=== PATIENT | male | born 1975 | race Caucasian/White ===

== ENCOUNTER 2016-11-15 16:23 | Inpatient (IN) | payer BC, OTHER ==
[2016-11-15] MEDS ORDERED: SODIUM CHLORIDE 0.9% 1,000 ML IV STA ×2 (16:46→17:06)
--- NOTE | 2016-11-15 16:58 | ED ---
General Adult HPI - General Chief complaint: Dizziness Stated complaint: Dizzy, dehydrated Time Seen by Provider: 11/15/16 16:35 Source: patient, RN notes reviewed Mode of arrival: ambulatory Limitations: no limitations - History of Present Illness Initial comments: 41-year-old male presents emergency Department chief complaint of lightheadedness. Patient states that he is being lightheadedand he is standing when he goes to walk to the car. Patient does admit to history of hypertension. Patient states has been no shortness of breath no chest pain with this. Patient states he has actually passed out but he feels like he might pass out. Patient is concerned maybe it's dehydration he states he does not believe that he drinks enough water. Patient's eighth that he is not having any other symptoms at this time he does feel better but gets he will have the symptoms again he believes. Patient denies any other symptoms at this time. Patient denies any recent fever, chills, shortness of breath, chest pain, back pain, abdominal pain, nausea vomiting, numbness or tingling, dysuria or hematuria, constipation or diarrhea, headaches or visual changes, or any other current symptoms. - Related Data Home Medications Medication Instructions Recorded Confirmed Diazepam [Valium] 5 mg PO DAILY PRN 10/29/13 11/15/16 Hydrocodone/Acetaminophen [[place] 1 tab PO Q6H PRN 10/29/13 11/15/16 10-325] Albuterol Inhaler [Ventolin Hfa 1 - 2 puff INHALATION RT-Q6H PRN 11/15/16 Inhaler] Ergocalciferol [Vitamin D2] 50,000 unit PO FR 11/15/16 11/15/16 Febuxostat [Uloric] 40 mg PO DAILY PRN 11/15/16 11/15/16 Levothyroxine Sodium [Synthroid] 50 mcg PO DAILY 11/15/16 11/15/16 Lisinopril 30 mg PO DAILY 11/15/16 11/15/16 Mometasone/Formoterol [Dulera 200 1 puff INHALATION RT-DAILY 11/15/16 11/15/16 Mcg/5 Mcg Inhaler] oxyCODONE-APAP 10-325MG [Percocet 1 tab PO Q8H PRN 11/15/16 11/15/16 10-325 mg] Allergies Allergy/AdvReac Type Severity Reaction Status Date / Time No Known Allergies Allergy Verified 11/15/16 16:42 Review of Systems ROS Statement: Those systems with pertinent positive or pertinent negative responses have been documented in the HPI. ROS Other: All systems not noted in ROS Statement are negative. Past Medical History Past Medical History: Hypertension, Thyroid Disorder Additional Past Medical History / Comment(s): GOUT, vertigo History of Any Multi-Drug Resistant Organisms: None Reported Past Surgical History: Back Surgery, Orthopedic Surgery Past Psychological History: No Psychological Hx Reported Smoking Status: Former smoker Past Alcohol Use History: Occasional Past Drug Use History: None Reported General Exam - General Exam Comments Initial Comments: General: The patient is awake and alert, in no distress, and does not appear acutely ill. Eye: Pupils are equal, round and reactive to light, extra-ocular movements are intact; there is normal conjunctiva bilaterally. No signs of icterus. Ears, nose, mouth and throat: There are moist mucous membranes. Neck: The neck is supple, there is no tenderness. Cardiovascular: There is a regular rate and rhythm. No murmur, rub or gallop is appreciated. Respiratory: Lungs are clear to auscultation, respirations are non-labored, breath sounds are equal. No wheezes, stridor, rales, or rhonchi. Gastrointestinal: Soft, non-distended, non-tender abdomen without masses or organomegaly noted. There is no rebound or guarding present. No CVA tenderness. Bowel sounds are unremarkable. Back: There is no tenderness to palpation in the midline. There is no obvious deformity. No rashes noted. Musculoskeletal: Normal ROM, no tenderness, There is no pedal edema. There is no calf tenderness or swelling. Sensation intact. Pulses equal bilaterally 2+. Neurological: CN II-XII intact, There are no obvious motor or sensory deficits. Coordination appears grossly intact. Speech is normal. Skin: Skin is warm and dry and no rashes or lesions are noted. Psychiatric: Cooperative, appropriate mood & affect, normal judgment. Limitations: no limitations Course Vital Signs 11/15/16 11/15/16 11/15/16 16:27 17:08 17:30 Temperature 97.8 F Pulse Rate 82 67 Pulse Rate [ 84 Sitting] Pulse Rate [ 90 Standing] Pulse Rate [ 80 Supine] Respiratory 20 18 Rate Blood Pressure 117/62 89/55 Blood Pressure 93/55 [Sitting] Blood Pressure 92/51 [Standing] Blood Pressure 59/54 [Supine] O2 Sat by Pulse 99 98 Oximetry 11/15/16 11/15/16 18:00 19:19 Temperature Pulse Rate 68 64 Pulse Rate [ Sitting] Pulse Rate [ Standing] Pulse Rate [ Supine] Respiratory 20 16 Rate Blood Pressure 88/52 96/51 Blood Pressure [Sitting] Blood Pressure [Standing] Blood Pressure [Supine] O2 Sat by Pulse 97 100 Oximetry EKG Findings - EKG Comments: EKG Findings:: normal sinus rhythm 72 bpm, normal axis, no atopy, no S-T depressions or elevations, Medical Decision Making - Medical Decision Making 41-year-old male presents to the emergency department with a chief complaint of lightheadedness. Patient labwork reviewed that shows acute kidney failure. At this time patient remains hypotensive in the ER after 2 liters of fluid BP started to rise. Pateint will be continued on maintence fluids. Urine was reviewed and post void bladder scan showed 25cc. At this time we will admit patient and continue iv hydration. Patient will have labs rechecked in the am. we will consult nephro. Rito in agreement with admission and david was discussed with regarding case. - Lab Data Result diagrams: 11/15/16 17:10 11/15/16 17:10 Lab Results 11/15/16 11/15/16 11/15/16 Range/Units 17:10 17:10 17:10 WBC 13.3 H (3.8-10.6) k/uL RBC 4.69 (4.30-5.90) m/uL Hgb 13.8 (13.0-17.5) gm/dL Hct 40.9 (39.0-53.0) % MCV 87.2 (80.0-100.0) fL MCH 29.4 (25.0-35.0) pg MCHC 33.7 (31.0-37.0) g/dL RDW 13.3 (11.5-15.5) % Plt Count 282 (150-450) k/uL Neutrophils % 69 % Lymphocytes % 23 % Monocytes % 5 % Eosinophils % 1 % Basophils % 0 % Neutrophils # 9.2 H (1.3-7.7) k/uL Lymphocytes # 3.1 (1.0-4.8) k/uL Monocytes # 0.6 (0-1.0) k/uL Eosinophils # 0.1 (0-0.7) k/uL Basophils # 0.1 (0-0.2) k/uL PT (9.0-12.0) sec INR (<1.1) APTT (22.0-30.0) sec Sodium 132 L (137-145) mmol/L Potassium 4.5 (3.5-5.1) mmol/L Chloride 95 L (98-107) mmol/L Carbon Dioxide 17 L (22-30) mmol/L Anion Gap 20 mmol/L BUN 41 H (9-20) mg/dL Creatinine 4.50 H (0.66-1.25) mg/dL Est GFR (MDRD) Af Amer 18 (>60 ml/min/1.73 sqM) Est GFR (MDRD) Non-Af 15 (>60 ml/min/1.73 sqM) Glucose 89 (74-99) mg/dL Calcium 9.6 (8.4-10.2) mg/dL Magnesium 1.6 (1.6-2.3) mg/dL Total Bilirubin 0.6 (0.2-1.3) mg/dL AST 19 (17-59) U/L ALT 36 (21-72) U/L Alkaline Phosphatase 55 (38-126) U/L Total Creatine Kinase 128 (55-170) U/L CK-MB (CK-2) 0.6 (0.0-2.4) ng/mL CK-MB (CK-2) Rel Index 0.5 Troponin I <0.012 (0.000-0.034) ng/mL Total Protein 8.4 H (6.3-8.2) g/dL Albumin 5.3 H (3.5-5.0) g/dL Urine Color Urine Appearance (Clear) Urine pH (5.0-8.0) Ur Specific [place] (1.001-1.035) Urine Protein (Negative) Urine Glucose (UA) (Negative) Urine Ketones (Negative) Urine Blood (Negative) Urine Nitrite (Negative) Urine Bilirubin (Negative) Urine Urobilinogen (<2.0) mg/dL Ur Leukocyte Esterase (Negative) Urine RBC (0-5) /hpf Urine WBC (0-5) /hpf Ur Squamous Epith Cells (0-4) /hpf Amorphous Sediment (None) /hpf Hyaline Casts (0-2) /lpf Urine Mucus (None) /hpf Urine Opiates Screen (NotDetected) Ur Oxycodone Screen (NotDetected) Urine Methadone Screen (NotDetected) Ur Propoxyphene Screen (NotDetected) Ur Barbiturates Screen (NotDetected) U Tricyclic Antidepress (NotDetected) Ur Phencyclidine Scrn (NotDetected) Ur Amphetamines Screen (NotDetected) U Methamphetamines Scrn (NotDetected) U Benzodiazepines Scrn (NotDetected) Urine Cocaine Screen (NotDetected) U Marijuana (THC) Screen (NotDetected) 11/15/16 11/15/16 11/15/16 Range/Units 17:10 18:05 18:05 WBC (3.8-10.6) k/uL RBC (4.30-5.90) m/uL Hgb (13.0-17.5) gm/dL Hct (39.0-53.0) % MCV (80.0-100.0) fL MCH (25.0-35.0) pg MCHC (31.0-37.0) g/dL RDW (11.5-15.5) % Plt Count (150-450) k/uL Neutrophils % % Lymphocytes % % Monocytes % % Eosinophils % % Basophils % % Neutrophils # (1.3-7.7) k/uL Lymphocytes # (1.0-4.8) k/uL Monocytes # (0-1.0) k/uL Eosinophils # (0-0.7) k/uL Basophils # (0-0.2) k/uL PT 10.6 (9.0-12.0) sec INR 1.0 (<1.1) APTT 24.6 (22.0-30.0) sec Sodium (137-145) mmol/L Potassium (3.5-5.1) mmol/L Chloride (98-107) mmol/L Carbon Dioxide (22-30) mmol/L Anion Gap mmol/L BUN (9-20) mg/dL Creatinine (0.66-1.25) mg/dL Est GFR (MDRD) Af Amer (>60 ml/min/1.73 sqM) Est GFR (MDRD) Non-Af (>60 ml/min/1.73 sqM) Glucose (74-99) mg/dL Calcium (8.4-10.2) mg/dL Magnesium (1.6-2.3) mg/dL Total Bilirubin (0.2-1.3) mg/dL AST (17-59) U/L ALT (21-72) U/L Alkaline Phosphatase (38-126) U/L Total Creatine Kinase (55-170) U/L CK-MB (CK-2) (0.0-2.4) ng/mL CK-MB (CK-2) Rel Index Troponin I (0.000-0.034) ng/mL Total Protein (6.3-8.2) g/dL Albumin (3.5-5.0) g/dL Urine Color Yellow Urine Appearance Clear (Clear) Urine pH 5.0 (5.0-8.0) Ur Specific [place] 1.012 (1.001-1.035) Urine Protein Trace H (Negative) Urine Glucose (UA) Negative (Negative) Urine Ketones Negative (Negative) Urine Blood Negative (Negative) Urine Nitrite Negative (Negative) Urine Bilirubin Negative (Negative) Urine Urobilinogen <2.0 (<2.0) mg/dL Ur Leukocyte Esterase Small H (Negative) Urine RBC 1 (0-5) /hpf Urine WBC 14 H (0-5) /hpf Ur Squamous Epith Cells 1 (0-4) /hpf Amorphous Sediment Rare H (None) /hpf Hyaline Casts 50 H (0-2) /lpf Urine Mucus Occasional H (None) /hpf Urine Opiates Screen Detected H (NotDetected) Ur Oxycodone Screen Detected H (NotDetected) Urine Methadone Screen Not Detected (NotDetected) Ur Propoxyphene Screen Not Detected (NotDetected) Ur Barbiturates Screen Not Detected (NotDetected) U Tricyclic Antidepress Not Detected (NotDetected) Ur Phencyclidine Scrn Not Detected (NotDetected) Ur Amphetamines Screen Not Detected (NotDetected) U Methamphetamines Scrn Not Detected (NotDetected) U Benzodiazepines Scrn Detected H (NotDetected) Urine Cocaine Screen Not Detected (NotDetected) U Marijuana (THC) Screen Detected H (NotDetected) Disposition Clinical Impression: Acute kidney failure, Lightheadedness, Dehydration, Hypotension, Hyponatremia Disposition: ADMITTED IP TO THIS HOSP Referrals: July Reyna DO [Primary Care Provider] - 1-2 days Time of Disposition: 19:30 Decision Date: 11/15/16 Decision Time: 19:30
[2016-11-15 17:33] LABS: Basophils # (A) 0.1 k/uL (0-0.2); Basophils % (A) 0 %; CH 30.3; CHCM 34.8; Eosinophils # (A) 0.1 k/uL (0-0.7); Eosinophils % (A) 1 %; HCT 40.9 % (39.0-53.0); HDW 2.42; HGB 13.8 gm/dL (13.0-17.5); Luc # (Auto) 0.25; Luc % (Auto) 2; Lymphocytes # (A) 3.1 k/uL (1.0-4.8); Lymphocytes % (A) 23 %; MCH 29.4 pg (25.0-35.0); MCHC 33.7 g/dL (31.0-37.0); MCV 87.2 fL (80.0-100.0); Mean Platelet Volume 8.4; Monocytes # (A) 0.6 k/uL (0-1.0); Monocytes % (A) 5 %; Neutrophils # (A) 9.2 k/uL (1.3-7.7); Neutrophils % (A) 69 %; RBC 4.69 m/uL (4.30-5.90); RDW 13.3 % (11.5-15.5); WBC 13.3 k/uL (3.8-10.6)
--- NOTE | 2016-11-15 17:39 | XR ---
EXAMINATION TYPE: XR chest 2V DATE OF EXAM: 11/15/2016 COMPARISON: 09/23/2011 HISTORY: Dizziness TECHNIQUE: Frontal and lateral views of the chest are obtained. FINDINGS: Heart and mediastinum are normal. Lungs are clear. Diaphragm is normal. There are chest le ads. Bony thorax is intact. IMPRESSION: Normal chest. No change.
[2016-11-15 17:41] LABS: Calcium 9.6 mg/dL (8.4-10.2); Magnesium 1.6 mg/dL (1.6-2.3); Potassium 4.5 mmol/L (3.5-5.1); Total Bilirubin 0.6 mg/dL (0.2-1.3); Total Protein 8.4 g/dL (6.3-8.2)
[2016-11-15 17:54] LABS: Creatine Kinase 128 U/L (55-170)
[2016-11-15 17:57] LABS: Partial Thromboplastin Time 24.6 sec (22.0-30.0); Prothrombin Time 10.6 sec (9.0-12.0)
[2016-11-15 18:06] LABS: Creatine Kinase MB 0.6 ng/mL (0.0-2.4); Troponin I <0.012 ng/mL (0.000-0.034)
[2016-11-15 18:31] LABS: Amorphous Sediment,Urine Rare /hpf; Appearance,Urine Clear (Clear); Bilirubin,Urine Negative (Negative); Glucose,Urine (UA) Negative (Negative); Ketones,Urine Negative (Negative); Leukocyte Esterase,Urine Small (Negative); Mucus,Urine Occasional /hpf; Nitrite,Urine Negative (Negative); Particle Count 3940; Protein,Urine Trace (Negative); RBC,Urine 1 /hpf (0-5); Specific Gravity,Urine 1.012 (1.001-1.035); Squamous Epithelial Cell,Urine 1 /hpf (0-4); UA Billing (MACRO vs. MICRO) MICRO; Urobilinogen,Urine <2.0 mg/dL (<2.0); WBC,Urine 14 /hpf (0-5)
--- NOTE | 2016-11-15 19:15 | US ---
EXAMINATION TYPE: US renals and bladder DATE OF EXAM: 11/15/2016 COMPARISON: NONE CLINICAL HISTORY: Pain. Elevated BUN/creatinine EXAM MEASUREMENTS: Right Kidney: 11.2 x 5.3 x 5.4 cm Left Kidney: 11.6 x 5.3 x 4.8 cm Right Kidney: No hydronephrosis or masses seen Left Kidney: No hydronephrosis or masses seen Bladder: wnl Bilateral Jets seen: Yes There is no evidence for hydronephrosis at this point in time. No nephrolithiasis is seen. No angelina s are identified. The urinary bladder is anechoic. Bilateral ureteral jets are seen. IMPRESSION: Normal retroperitoneal sonogram exam. No evidence of renal stone or obstruction.
[2016-11-15] MEDS ORDERED: ONDANSETRON 4 MG/2 ML VIAL IVP PRN (19:30)
[2016-11-15] MEDS ORDERED: NALOXONE 0.4 MG/ML 1 ML VIAL IV PRN (19:30)
[2016-11-15] MEDS ORDERED: ACETAMINOPHEN TAB 325 MG TAB PO PRN (19:30)
[2016-11-15] MEDS ORDERED: ALLOPURINOL 100 MG TAB PO PRN (19:32)
[2016-11-15] MEDS ORDERED: ALBUTEROL NEBULIZED 2.5 MG/3 ML INHALATION PRN (19:32)
[2016-11-15 21:58] VITALS: RESP 16
[2016-11-15] MEDS: HYDROcodone/APAP 10-325MG 1 EACH TAB PO PRN (22:01)
[2016-11-15] MEDS: DIAZEPAM 5 MG TAB PO PRN (22:03)
[2016-11-16] MEDS: SODIUM CHLORIDE 0.9% 1,000 ML IV SCH ×4 (05:45→21:56)
[2016-11-16 06:16] LABS: Basophils % (A) 0 %; CH 29.9; CHCM 33.9; Eosinophils # (A) 0.1 k/uL (0-0.7); Eosinophils % (A) 2 %; HCT 35.9 % (39.0-53.0); HDW 2.44; HGB 11.8 gm/dL (13.0-17.5); Luc # (Auto) 0.19; Luc % (Auto) 3; Lymphocytes # (A) 2.6 k/uL (1.0-4.8); Lymphocytes % (A) 38 %; MCH 29.1 pg (25.0-35.0); MCHC 32.9 g/dL (31.0-37.0); MCV 88.4 fL (80.0-100.0); Mean Platelet Volume 8.1; Monocytes # (A) 0.5 k/uL (0-1.0); Monocytes % (A) 7 %; Neutrophils # (A) 3.6 k/uL (1.3-7.7); Neutrophils % (A) 51 %; RBC 4.06 m/uL (4.30-5.90); RDW 13.2 % (11.5-15.5); WBC (Perox) 7.24
[2016-11-16 06:34] LABS: Calcium 8.3 mg/dL (8.4-10.2); Potassium 4.1 mmol/L (3.5-5.1); Total Bilirubin 0.5 mg/dL (0.2-1.3); Total Protein 6.7 g/dL (6.3-8.2)
[2016-11-16] MEDS: LEVOTHYROXINE 50 MCG TAB PO SCH (06:36)
[2016-11-16] MEDS: SYMBICORT 160-4.5 MCG INHALER INHALATION SCH ×2 (08:10→20:17)
[2016-11-16] MEDS: HYDROcodone/APAP 10-325MG 1 EACH TAB PO PRN ×3 (08:19→21:23)
--- NOTE | 2016-11-16 13:19 | CONS ---
DATE OF CONSULTATION: REASON FOR CONSULTATION: Renal failure. HISTORY OF PRESENT ILLNESS: The patient is 41-year-old male who was admitted to the hospital with complaints of extreme weakness, fatigue. He felt dizzy and lightheadedness as well. When he came in to the hospital, his systolic blood pressure in the 90s and 80s range. Patient is maintained on IV fluids. His serum creatinine was 4.5 on initial admission and it is now down to 2.06. We have a previous creatinine in 2013 or 0.98 mg/dL. Patient denies any history of kidney diseases. He denies use of any nonsteroidal anti-inflammatory agents prior to admission and he was on OSEAS inhibitors prior to admission for hypertension. He states he is feeling much better and has been ambulating. PAST MEDICAL HISTORY: Hypertension, asthma, gout, hypothyroidism, vertigo. PAST SURGICAL HISTORY: Back surgery. SOCIAL HISTORY: The patient is an ex-smoker. No history of drug abuse or alcohol abuse. Medications prior to admission included [place], Valium, Synthroid, Uloric, vitamin D2, Dulera, Percocet, lisinopril. ALLERGIES: None. REVIEW OF SYSTEMS: As per HPI. Other systems negative. No fever, chills. No nausea, vomiting, or diarrhea. No chest pains. No shortness of breath. On examination, the patient is comfortable. Blood pressure is currently 115/75, heart rate 90 per minute. He is afebrile. EXAMINATION OF THE HEART: S1 and S2. EXAMINATION OF THE LUNGS: Bilateral breath sounds are heard. ABDOMEN: Soft, nontender. Examination of lower extremities shows no evidence of edema. BILLING CLINICIAN exam is grossly intact. Labs show sodium 137, potassium 4.1, BUN 38, serum creatinine 2.06. Hemoglobin 11.8 g/dL UA shows trace protein, 14 WBCs and drug screen was positive for opiates, oxycodone, benzos and marijuana. ASSESSMENT: 1. Acute kidney injury, prerenal, associated with hypotension, hypoperfusion and intravascular volume depletion currently improved. Continue with aggressive IV hydration. I have advised the patient that it is better if he stays at least one more day for IV hydration. However, he could go home if he absolutely wants to and he needs to continue to maintain aggressive oral hydration with repeat labs to be done in 1 to 2 days' time post discharge if he goes home today. 2. Hypotension secondary to intravascular volume depletion. 3. Drug screen positive for marijuana, benzodiazepines, opiates and oxycodone. 4. Hypertension, currently blood pressure is low and off on all antihypertensive medications. PLAN: Continue IV hydration. Recommend for patient to stay at least one more day. The ultrasound of the kidneys was unremarkable. He will need follow-up labs to be done as outpatient once he is discharged. Thank you for this consultation. Will continue to follow the patient with you during his hospitalization.
[2016-11-16] MEDS: DIAZEPAM 5 MG TAB PO PRN ×2 (13:26→21:24)
--- NOTE | 2016-11-16 13:27 | P.HPIM ---
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 Past Medical History Past Medical History: Asthma, Hypertension, Thyroid Disorder Additional Past Medical History / Comment(s): GOUT, vertigo History of Any Multi-Drug Resistant Organisms: None Reported Past Surgical History: Back Surgery, Orthopedic Surgery Additional Past Surgical History / Comment(s): left shoulder spurs Past Anesthesia/Blood Transfusion Reactions: No Reported Reaction Past Psychological History: No Psychological Hx Reported Smoking Status: Never smoker Past Alcohol Use History: Occasional Past Drug Use History: None Reported - Past Family History Father Additional Family Medical History / Comment(s): no history to report Mother Additional Family Medical History / Comment(s): back issues Medications and Allergies Home Medications Medication Instructions Recorded Confirmed Type Diazepam [Valium] 5 mg PO DAILY PRN 10/29/13 11/15/16 History Hydrocodone/Acetaminophen [[place] 1 tab PO Q6H PRN 10/29/13 11/15/16 History 10-325] Albuterol Inhaler [Ventolin Hfa 1 - 2 puff INHALATION RT-Q6H PRN 11/15/16 History Inhaler] Ergocalciferol [Vitamin D2] 50,000 unit PO FR 11/15/16 11/15/16 History Febuxostat [Uloric] 40 mg PO DAILY PRN 11/15/16 11/15/16 History Levothyroxine Sodium [Synthroid] 50 mcg PO DAILY 11/15/16 11/15/16 History Lisinopril 30 mg PO DAILY 11/15/16 11/15/16 History Mometasone/Formoterol [Dulera 200 1 puff INHALATION RT-DAILY 11/15/16 11/15/16 History Mcg/5 Mcg Inhaler] oxyCODONE-APAP 10-325MG [Percocet 1 tab PO Q8H PRN 11/15/16 11/15/16 History 10-325 mg] Allergies Allergy/AdvReac Type Severity Reaction Status Date / Time No Known Allergies Allergy Verified 11/15/16 16:42 Physical Exam Vitals: Vital Signs Temp Pulse Pulse Pulse Pulse Resp BP 11/16/16 11:58 90 16 11/16/16 08:00 97.6 F 70 16 11/16/16 04:00 97.8 F 61 16 11/16/16 01:06 96.5 F L 73 103 H 66 16 11/15/16 21:40 96.5 F L 73 75 66 16 11/15/16 21:10 98.2 F 76 20 126/63 11/15/16 20:01 98.9 F 57 L 16 100/59 11/15/16 19:19 64 16 96/51 11/15/16 18:30 64 20 92/54 11/15/16 18:00 68 20 88/52 11/15/16 17:30 67 18 89/55 11/15/16 17:08 84 90 80 11/15/16 16:27 97.8 F 82 20 117/62 BP BP BP Pulse Ox 11/16/16 11:58 115/75 99 11/16/16 08:00 109/70 99 11/16/16 04:00 89/45 96 11/16/16 01:06 110/66 103/63 105/63 11/15/16 21:40 110/66 103/63 105/63 99 11/15/16 21:10 100 11/15/16 20:01 97 11/15/16 19:19 100 11/15/16 18:30 100 11/15/16 18:00 97 11/15/16 17:30 98 11/15/16 17:08 93/55 92/51 59/54 11/15/16 16:27 99 Intake and Output 11/15/16 11/16/16 11/16/16 22:59 06:59 14:59 Intake Total 1440 836 Output Total 100 2950 Balance -100 -1510 836 Intake: Intake, IV Titration 1440 600 Amount Sodium Chloride 0.9% 1, 1440 600 000 ml @ 120 mls/hr IV . Q8H20M [facility] Rx#:[id number] Oral 236 Output: Urine 100 2950 Other: Voiding Method Urinal Urinal Weight 117.934 kg 113.7 kg In general patient is alert and oriented 3 in no apparent distress HEENT head normocephalic and atraumatic Neck is supple no JVD no goiter no lymphadenopathy Chest exam reveals a few scattered crackles no wheezing Cardiac exam reveals regular heart sounds no gallops no murmurs Abdomen is soft nontender no organomegaly with normal bowel sounds Extremity exam reveals no edema no cyanosis or clubbing Results CBC & Chem 7: 11/16/16 05:38 11/16/16 05:38 Labs: Abnormal Lab Results - Last 24 Hours (Table) 11/15/16 11/15/16 11/15/16 Range/Units 17:10 17:10 18:05 WBC 13.3 H (3.8-10.6) k/uL RBC (4.30-5.90) m/uL Hgb (13.0-17.5) gm/dL Hct (39.0-53.0) % Neutrophils # 9.2 H (1.3-7.7) k/uL Sodium 132 L (137-145) mmol/L Chloride 95 L (98-107) mmol/L Carbon Dioxide 17 L (22-30) mmol/L BUN 41 H (9-20) mg/dL Creatinine 4.50 H (0.66-1.25) mg/dL Calcium (8.4-10.2) mg/dL AST (17-59) U/L Total Protein 8.4 H (6.3-8.2) g/dL Albumin 5.3 H (3.5-5.0) g/dL Urine Protein Trace H (Negative) Ur Leukocyte Esterase Small H (Negative) Urine WBC 14 H (0-5) /hpf Amorphous Sediment Rare H (None) /hpf Hyaline Casts 50 H (0-2) /lpf Urine Mucus Occasional H (None) /hpf Urine Opiates Screen (NotDetected) Ur Oxycodone Screen (NotDetected) U Benzodiazepines Scrn (NotDetected) U Marijuana (THC) Screen (NotDetected) 11/15/16 11/16/16 11/16/16 Range/Units 18:05 05:38 05:38 WBC (3.8-10.6) k/uL RBC 4.06 L (4.30-5.90) m/uL Hgb 11.8 L (13.0-17.5) gm/dL Hct 35.9 L (39.0-53.0) % Neutrophils # (1.3-7.7) k/uL Sodium (137-145) mmol/L Chloride (98-107) mmol/L Carbon Dioxide 20 L (22-30) mmol/L BUN 38 H (9-20) mg/dL Creatinine 2.06 H (0.66-1.25) mg/dL Calcium 8.3 L (8.4-10.2) mg/dL AST 15 L (17-59) U/L Total Protein (6.3-8.2) g/dL Albumin (3.5-5.0) g/dL Urine Protein (Negative) Ur Leukocyte Esterase (Negative) Urine WBC (0-5) /hpf Amorphous Sediment (None) /hpf Hyaline Casts (0-2) /lpf Urine Mucus (None) /hpf Urine Opiates Screen Detected H (NotDetected) Ur Oxycodone Screen Detected H (NotDetected) U Benzodiazepines Scrn Detected H (NotDetected) U Marijuana (THC) Screen Detected H (NotDetected) Microbiology - Last 24 Hours (Table) 11/15/16 18:05 Urine Culture - Preliminary Urine,Voided Thrombosis Risk Factor Assmnt - Choose All That Apply Each Factor Represents 1 point: Age 41-60 years Thrombosis Risk Factor Assessment Total Risk Factor Score: 1 Thrombosis Risk Factor Assessment Level: Low Risk Assessment and Plan Plan: #1 acute renal failure likely related to dehydration and prerenal azotemia #2 underlying history of hypertension patient was maintained on lisinopril, at this time blood pressure is on the low side and lisinopril is on hold #3 underlying history of asthma stable at this time #4 for DVT prophylaxis Will use Lovenox for GI prophylaxis we will use Pepcid Will follow during this admission possible discharge to home in 24 hours
[2016-11-16] MEDS: ENOXAPARIN 40 MG/0.4 ML SYRINGE SQ SCH (14:21)
[2016-11-16] MEDS: FAMOTIDINE 20 MG TAB PO SCH (14:21)
[2016-11-17 06:39] LABS: Basophils % (A) 0 %; CH 29.8; CHCM 34.2; Eosinophils # (A) 0.1 k/uL (0-0.7); Eosinophils % (A) 1 %; HCT 35.7 % (39.0-53.0); HDW 2.48; HGB 12.3 gm/dL (13.0-17.5); Luc # (Auto) 0.15; Luc % (Auto) 2; Lymphocytes % (A) 30 %; MCH 30.3 pg (25.0-35.0); MCHC 34.6 g/dL (31.0-37.0); MCV 87.6 fL (80.0-100.0); Mean Platelet Volume 8.2; Monocytes # (A) 0.4 k/uL (0-1.0); Monocytes % (A) 6 %; Neutrophils # (A) 4.1 k/uL (1.3-7.7); Neutrophils % (A) 61 %; RBC 4.07 m/uL (4.30-5.90); RDW 13.2 % (11.5-15.5); WBC 6.7 k/uL (3.8-10.6); WBC (Perox) 6.94
[2016-11-17 06:53] LABS: ALT 27 U/L (21-72); AST 15 U/L (17-59); Alkaline Phosphatase 49 U/L (38-126); Anion Gap 11 mmol/L; Blood Urea Nitrogen 17 mg/dL (9-20); Calcium 9.7 mg/dL (8.4-10.2); Carbon Dioxide 20 mmol/L (22-30); Chloride 111 mmol/L (98-107); Glucose 97 mg/dL (74-99); Non-African American GFR(MDRD) >60 (>60 ml/min/1.73 sqM); Potassium 4.8 mmol/L (3.5-5.1); Sodium 142 mmol/L (137-145); Total Bilirubin 0.2 mg/dL (0.2-1.3); Total Protein 7.2 g/dL (6.3-8.2)
[2016-11-17] MEDS: SODIUM CHLORIDE 0.9% 1,000 ML IV SCH (08:11)
[2016-11-17] MEDS: LEVOTHYROXINE 50 MCG TAB PO SCH (08:25)
[2016-11-17] MEDS: FAMOTIDINE 20 MG TAB PO SCH (08:25)
[2016-11-17] MEDS: HYDROcodone/APAP 10-325MG 1 EACH TAB PO PRN (08:26)
[2016-11-17] MEDS: DIAZEPAM 5 MG TAB PO PRN (08:26)
[2016-11-17 08:34] VITALS: BP 115/72; PULSE 57; TEMP 97
[2016-11-17] MEDS: ENOXAPARIN 40 MG/0.4 ML SYRINGE SQ SCH (08:34)
--- NOTE | 2016-11-17 10:53 | P.DS ---
Providers Date of admission: 11/15/16 19:41 Expected date of discharge: 11/17/16 Attending physician: Bahman Garcia Consults: 11/15/16 19:43 Consult Physician Routine Consulting Provider: Kirsten Emery Consult Reason/Comments: ADRIEL Do you want consulting provider notified?: Yes Primary care physician: July Reyna [facility] Course: Discharge diagnosis 1. Acute kidney injury likely prerenal due to hypotension with hypoperfusion and intravascular volume depletion. OSEAS inhibitor discontinued. Evaluated by nephrology. Patient given IV fluids. Renal ultrasound was unremarkable. 2. Hypotension secondary to intravascular volume depletion 3. History of essential hypertension 4. 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 Patient also reports that he had stopped sweating and his urine is very dark. His found have evidence of acute kidney injury. His OSEAS inhibitor was discontinued. He was placed on IV fluids. Nephrology was consulted. A renal ultrasound was unremarkable. Kidney functions have normalized with the IV fluids as creatinine 0.90 at discharge. Patient has been cleared for discharge by nephrology. Patient's lisinopril has been discontinued as well as the uloric. Patient has been educated to increase his fluid intake during work. With water and Gatorade. And to avoid caffeinated energy drinks. Patient is medically stable for discharge. His symptoms have improved. We'll have patient follow-up with his PCP in 3 days and repeat kidney functions at that time. Patient's blood pressures have been stable and a little on the lower side not requiring any blood pressure medications. He'll follow-up with his PCP for blood pressure check as well. Also, they can address if the Uloric can be restarted. Patient Condition at Discharge: Stable Plan - Discharge Summary New Discharge Prescriptions: Continue Diazepam [Valium] 5 mg PO DAILY PRN PRN Reason: Anxiety Hydrocodone/Acetaminophen [Elmo 10-325] 1 tab PO Q6H PRN PRN Reason: Pain Albuterol Inhaler [Ventolin Hfa Inhaler] 1 - 2 puff INHALATION RT-Q6H PRN PRN Reason: Shortness Of Breath oxyCODONE-APAP 10-325MG [Percocet 10-325 mg] 1 tab PO Q8H PRN PRN Reason: Pain Mometasone/Formoterol [Dulera 200 Mcg/5 Mcg Inhaler] 1 puff INHALATION RT- DAILY Ergocalciferol [Vitamin D2 (DRISDOL)] 50,000 unit PO FR Levothyroxine Sodium [Synthroid] 50 mcg PO DAILY Discontinued Lisinopril 30 mg PO DAILY Febuxostat [Uloric] 40 mg PO DAILY PRN PRN Reason: FLARE UP Discharge Medication List Diazepam [Valium] 5 mg PO DAILY PRN 10/29/13 [History] Hydrocodone/Acetaminophen [Elmo 10-325] 1 tab PO Q6H PRN 10/29/13 [History] Albuterol Inhaler [Ventolin Hfa Inhaler] 1 - 2 puff INHALATION RT-Q6H PRN [History] Ergocalciferol [Vitamin D2 (DRISDOL)] 50,000 unit PO FR 11/15/16 [History] Levothyroxine Sodium [Synthroid] 50 mcg PO DAILY 11/15/16 [History] Mometasone/Formoterol [Dulera 200 Mcg/5 Mcg Inhaler] 1 puff INHALATION RT-DAILY 11/15/16 [History] oxyCODONE-APAP 10-325MG [Percocet 10-325 mg] 1 tab PO Q8H PRN 11/15/16 [History] Follow up Appointment(s)/Referral(s): July Reyna DO [Primary Care Provider] - 3 Days Activity/Diet/Wound Care/Special Instructions: Diet: cardiac, drink plenty of water and gatorade Activity: as tolerated Discharge Disposition: HOME SELF-CARE
--- NOTE | 2016-11-17 19:05 | PN ---
The patient is seen for follow-up for acute kidney injury which was mainly prerenal and has improved significantly with IV hydration. Patient's serum creatinine is down to 0.9 from 4.5 mg/dL on initial admission. On examination, he is comfortable. Blood pressure is 104/71 from this morning, heart rate 60 per minute, he is afebrile. Examination of the heart S1 and S2. Examination of the lungs: Bilateral breath sounds are heard. ABDOMEN: Soft, nontender. Examination of the lower extremities shows no significant edema. CENTRAL NERVOUS SYSTEM: Exam is grossly intact. Labs show sodium 142, potassium 4.8, serum creatinine 0.9. Hemoglobin 12.3 g/dL. ASSESSMENT: 1. Acute kidney injury secondary to severe hypovolemia as well as hypoperfusion, currently improved with creatinine down to 0.9, patient is advised that he can be discharged; however, he needs to maintain his oral hydration and avoid use of NSAIDs. 2. Hypotension, hypovolemia, improved post IV fluid administration. 3. Trace proteinuria noted on urinalysis. This needs to be repeated as outpatient. 4. Drug screen positive for benzos, oxycodone and opiates as well as marijuana. PLAN: The patient is stable for discharge. Follow up as outpatient with regular physician. Repeat UA as outpatient.
[2016-11-18] MEDS ORDERED: ERGOCALCIFEROL 50,000 UNIT CAP PO SCH (12:00)
== END 2016-11-17 11:50 | disposition home or self-care (01) | DRG 683 ==
LOC: EC 16:23 → 6SEL 19:41
PROVIDERS: ADMIT Internal Medicine; ATTEND Internal Medicine
DX: N17.9 Acute kidney failure, unspecified (principal); E87.1 Hypo-osmolality and hyponatremia; I95.9 Hypotension, unspecified; I10 Essential (primary) hypertension; E03.9 Hypothyroidism, unspecified; E86.0 Dehydration; E86.1 Hypovolemia; J45.909 Unspecified asthma, uncomplicated; M10.9 Gout, unspecified; Z79.899 Other long term (current) drug therapy; Z87.891 Personal history of nicotine dependence
CPT/HCPCS: 36415; 51798; 71020; 76770; 80053; 80306; 81001; 82550; 82553; 83735; 84484; 85025; 85610; 85730; 87086; 93005; 94640; 96360; 96361; 99285

== ENCOUNTER 2017-12-29 23:33 | Inpatient (IN) | payer BC, OTHER ==
[2017-12-29] MEDS ORDERED: ceFAZolin 2,000 MG in DEXTROSE/WATER 1 50ML.BAG IVPB STA (23:41)
[2017-12-29] MEDS ORDERED: MORPHINE SULFATE 4 MG/ML SYRINGE IV STA (23:41)
[2017-12-29] MEDS ORDERED: ceFAZolin IN SWFI 2 GM/20 ML SYRINGE IVP ONE (23:45)
[2017-12-29 23:48] LABS: Glucose,Whole Blood 97 mg/dL (75-99)
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
--- NOTE | 2017-12-30 00:09 | XR ---
EXAMINATION TYPE: XR pelvis AP view DATE OF EXAM: 12/30/2017 COMPARISON: NONE HISTORY: Pain TECHNIQUE: Single view FINDINGS: Portable exam shows an intact pelvic ring. Proximal femurs and hip joints are intact. Sacro iliac joints are normal. IMPRESSION: Negative exam. No fracture.
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
[2017-12-30 00:18] LABS: Basophils # (A) 0.1 k/uL (0-0.2); Basophils % (A) 0 %; Eosinophils # (A) 0.3 k/uL (0-0.7); Eosinophils % (A) 1 %; HCT 41.9 % (39.0-53.0); HGB 13.2 gm/dL (13.0-17.5); Lymphocytes # (A) 3.9 k/uL (1.0-4.8); Lymphocytes % (A) 21 %; MCHC 31.6 g/dL (31.0-37.0); MCV 88.7 fL (80.0-100.0); Mean Platelet Volume 7.6; Monocytes # (A) 0.7 k/uL (0-1.0); Monocytes % (A) 4 %; Neutrophils # (A) 13.5 k/uL (1.3-7.7); Neutrophils % (A) 72 %; Platelet Count 307 k/uL (150-450); RBC 4.72 m/uL (4.30-5.90); RDW 13.7 % (11.5-15.5); WBC 18.8 k/uL (3.8-10.6)
[2017-12-30 00:27] LABS: ALT 41 U/L (21-72); AST 28 U/L (17-59); Albumin 4.8 g/dL (3.5-5.0); Alkaline Phosphatase 52 U/L (38-126); Amylase 96 U/L (30-110); Anion Gap 16 mmol/L; Blood Urea Nitrogen 12 mg/dL (9-20); Calcium 10.2 mg/dL (8.4-10.2); Carbon Dioxide 22 mmol/L (22-30); Chloride 102 mmol/L (98-107); Glucose 92 mg/dL (74-99); Lipase 150 U/L (23-300); Sodium 140 mmol/L (137-145); Total Bilirubin 0.4 mg/dL (0.2-1.3)
[2017-12-30 00:31] LABS: Prothrombin Time 9.8 sec (9.0-12.0)
[2017-12-30 00:33] LABS: Partial Thromboplastin Time 20.2 sec (22.0-30.0)
[2017-12-30 00:34] LABS: Alcohol 130 mg/dL
[2017-12-30] MEDS ORDERED: MORPHINE SULFATE 4 MG/ML SYRINGE IV STA ×2 (00:34→01:25)
[2017-12-30 00:42] LABS: Creatine Kinase 121 U/L (55-170)
[2017-12-30 00:55] LABS: Creatine Kinase MB 0.7 ng/mL (0.0-2.4); Troponin I <0.012 ng/mL (0.000-0.034)
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
[2017-12-30] MEDS ORDERED: ETOMIDATE 2 MG/ML 10 ML VIAL IVP STA (01:37)
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
[2017-12-30] MEDS ORDERED: HYDROmorphone 1 MG/ML 1 ML SYRINGE IVP PRN (02:19)
[2017-12-30] MEDS ORDERED: HYDROmorphone 1 MG/ML 1 ML SYRINGE IVP STA (02:19)
[2017-12-30] MEDS ORDERED: ONDANSETRON 4 MG/2 ML VIAL IVP PRN (02:19)
[2017-12-30] MEDS ORDERED: NALOXONE 0.4 MG/ML 1 ML VIAL IV PRN (02:19)
[2017-12-30 02:53] LABS: Appearance,Urine Clear (Clear); Bilirubin,Urine Negative (Negative); Blood,Urine Negative (Negative); Color,Urine Light Yellow; Glucose,Urine (UA) Negative (Negative); Ketones,Urine Negative (Negative); Leukocyte Esterase,Urine Negative (Negative); Nitrite,Urine Negative (Negative); Protein,Urine Negative (Negative); Specific Gravity,Urine 1.017 (1.001-1.035); Urobilinogen,Urine <2.0 mg/dL (<2.0)
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
[2017-12-30] MEDS: HYDROmorphone 0.5 MG/0.5 ML SYRINGE IVP PRN (03:06)
[2017-12-30 03:21] LABS: Cocaine Screen,Urine Not Detected (NotDetected); Phencyclidine Screen,Urine Not Detected (NotDetected)
[2017-12-30 03:22] LABS: Amphetamine Screen,Urine Not Detected (NotDetected); Barbiturate Screen,Urine Not Detected (NotDetected); Benzodiazepines Screen,Urine Detected (NotDetected); Methadone Screen, Urine Not Detected (NotDetected); Opiate Screen,Urine Detected (NotDetected); Oxycodone Screen, Urine Detected (NotDetected); Tricyclic Antidepressant,Urine Not Detected (NotDetected); Urn Cannabinoid Scrn Detected (NotDetected)
[2017-12-30 04:29] VITALS: BMI 32.5
[2017-12-30] MEDS ORDERED: ceFAZolin 2,000 MG in DEXTROSE/WATER 1 50ML.BAG IVPB SCH (08:00)
[2017-12-30] MEDS: HYDROmorphone 1 MG/ML 1 ML SYRINGE IVP PRN ×4 (08:20→22:20)
[2017-12-30] MEDS: FAMOTIDINE 20 MG TAB PO SCH ×2 (08:22→21:30)
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
[2017-12-30] MEDS: SODIUM CHLORIDE 0.9% 1,000 ML IV SCH ×3 (08:23→15:18)
[2017-12-30] MEDS: ceFAZolin IN SWFI 2 GM/20 ML SYRINGE IVP SCH ×2 (08:23→15:07)
[2017-12-30 09:07] LABS: Basophils % (A) 0 %; Eosinophils % (A) 0 %; HCT 32.6 % (39.0-53.0); HGB 10.8 gm/dL (13.0-17.5); Lymphocytes # (A) 1.4 k/uL (1.0-4.8); Lymphocytes % (A) 12 %; MCH 28.9 pg (25.0-35.0); MCHC 33.2 g/dL (31.0-37.0); MCV 87.1 fL (80.0-100.0); Mean Platelet Volume 7.6; Monocytes # (A) 0.6 k/uL (0-1.0); Monocytes % (A) 5 %; Neutrophils # (A) 9.5 k/uL (1.3-7.7); Neutrophils % (A) 82 %; Platelet Count 234 k/uL (150-450); RBC 3.74 m/uL (4.30-5.90); RDW 13.5 % (11.5-15.5); WBC 11.7 k/uL (3.8-10.6)
[2017-12-30 09:17] LABS: ALT 33 U/L (21-72); AST 29 U/L (17-59); Albumin 3.6 g/dL (3.5-5.0); Alcohol <10 mg/dL; Alkaline Phosphatase 48 U/L (38-126); Anion Gap 9 mmol/L; Blood Urea Nitrogen 8 mg/dL (9-20); Calcium 8.4 mg/dL (8.4-10.2); Carbon Dioxide 25 mmol/L (22-30); Chloride 105 mmol/L (98-107); Glucose 103 mg/dL (74-99); Potassium 4.1 mmol/L (3.5-5.1); Sodium 139 mmol/L (137-145); Total Bilirubin 0.7 mg/dL (0.2-1.3); Total Protein 6.1 g/dL (6.3-8.2)
[2017-12-30 09:20] LABS: Partial Thromboplastin Time 22.1 sec (22.0-30.0); Prothrombin Time 10.1 sec (9.0-12.0)
[2017-12-30 09:30] LABS: Creatine Kinase 468 U/L (55-170)
[2017-12-30 09:42] LABS: Troponin I <0.012 ng/mL (0.000-0.034)
[2017-12-30 09:49] LABS: Creatine Kinase MB 2.5 ng/mL (0.0-2.4)
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
[2017-12-30] MEDS ORDERED: IV FLUID CONTINUATION 100 ML IV ONE (10:13)
[2017-12-30] MEDS ORDERED: fentaNYL (PF) 50 MCG/ML 2 ML AMP ONE (10:13)
[2017-12-30] MEDS ORDERED: MIDAZOLAM 2 MG/2 ML VIAL ONE (10:13)
[2017-12-30] MEDS ORDERED: SUCCINYLCHOLINE CHLORIDE 100 MG/5 ML SYR IV ONE (10:13)
[2017-12-30] MEDS ORDERED: PROPOFOL 10 MG/ML 20 ML VIAL IV ONE (10:13)
[2017-12-30] MEDS ORDERED: HYDROmorphone (PF) 1 MG/ML ONE (10:13)
[2017-12-30] MEDS ORDERED: LIDOCAINE 1% INJ 10MG/ML (20 ML MDV) ONE (10:13)
[2017-12-30] MEDS ORDERED: LACTATED RINGERS 1,000 ML IV ONE (10:52)
--- NOTE | 2017-12-30 11:59 | XR ---
FLUOROSCOPY 49 seconds of fluoroscopy time were utilized during internal fixation of the left ankle. 3 images doc ument the procedure.
[2017-12-30] MEDS ORDERED: HYDROmorphone 1 MG/ML 1 ML SYRINGE IVP ONE ×2 (12:00→12:35)
[2017-12-30] MEDS ORDERED: LABETALOL 5 MG/ML VIAL MDV IVP ONE (12:38)
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
[2017-12-30] MEDS: HEPARIN SODIUM,PORCINE 5,000 UNIT/ML 1 ML VIAL SQ SCH (15:08)
[2017-12-30] MEDS ORDERED: DIAZEPAM 5 MG TAB PO PRN (16:27)
[2017-12-30] MEDS ORDERED: oxyCODONE-APAP 10-325MG 1 EACH TAB PO PRN (16:27)
[2017-12-30] MEDS ORDERED: ALBUTEROL NEBULIZED 2.5 MG/3 ML INHALATION PRN (16:27)
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
[2017-12-30] MEDS: GENTAMICIN 360 MG in SODIUM CHLORIDE 0.9% 100 ML IV SCH (18:24)
[2017-12-30] MEDS: HYDROcodone/APAP 10-325MG 1 EACH TAB PO PRN (18:32)
[2017-12-30] MEDS: KETOROLAC 30 MG/ML 1 ML VIAL IVP PRN (19:47)
[2017-12-31] MEDS: HEPARIN SODIUM,PORCINE 5,000 UNIT/ML 1 ML VIAL SQ SCH ×4 (00:15→23:14)
[2017-12-31] MEDS: HYDROmorphone 1 MG/ML 1 ML SYRINGE IVP PRN ×6 (01:07→21:44)
[2017-12-31] MEDS: ceFAZolin IN SWFI 2 GM/20 ML SYRINGE IVP SCH ×4 (01:09→23:14)
[2017-12-31] MEDS: SODIUM CHLORIDE 0.9% 1,000 ML IV SCH ×4 (01:41→17:08)
[2017-12-31] MEDS: KETOROLAC 30 MG/ML 1 ML VIAL IVP PRN ×4 (04:47→23:13)
[2017-12-31] MEDS: LEVOTHYROXINE 25 MCG TAB PO SCH (06:44)
[2017-12-31 07:43] LABS: ALT 31 U/L (21-72); AST 27 U/L (17-59); Albumin 3.2 g/dL (3.5-5.0); Alkaline Phosphatase 46 U/L (38-126); Anion Gap 6 mmol/L; Blood Urea Nitrogen 6 mg/dL (9-20); Calcium 8.1 mg/dL (8.4-10.2); Carbon Dioxide 28 mmol/L (22-30); Chloride 102 mmol/L (98-107); Glucose 113 mg/dL (74-99); Sodium 136 mmol/L (137-145); Total Bilirubin 0.8 mg/dL (0.2-1.3); Total Protein 5.6 g/dL (6.3-8.2)
[2017-12-31 07:47] LABS: Basophils % (A) 0 %; Eosinophils % (A) 0 %; HCT 28.4 % (39.0-53.0); HGB 9.5 gm/dL (13.0-17.5); Lymphocytes # (A) 1.1 k/uL (1.0-4.8); Lymphocytes % (A) 11 %; MCH 29.4 pg (25.0-35.0); MCHC 33.3 g/dL (31.0-37.0); MCV 88.3 fL (80.0-100.0); Mean Platelet Volume 7.4; Monocytes # (A) 0.6 k/uL (0-1.0); Monocytes % (A) 6 %; Neutrophils # (A) 7.8 k/uL (1.3-7.7); Neutrophils % (A) 81 %; Platelet Count 182 k/uL (150-450); RBC 3.22 m/uL (4.30-5.90); RDW 13.3 % (11.5-15.5); WBC 9.6 k/uL (3.8-10.6)
[2017-12-31] MEDS: SYMBICORT 160-4.5 MCG INHALER INHALATION SCH (08:04)
[2017-12-31] MEDS: HYDROcodone/APAP 10-325MG 1 EACH TAB PO PRN ×3 (08:23→20:43)
[2017-12-31] MEDS: MULTIVITAMINS, THERA 1 EACH TAB PO SCH (08:25)
[2017-12-31] MEDS: LISINOPRIL 10 MG TAB PO SCH (08:26)
[2017-12-31] MEDS: FAMOTIDINE 20 MG TAB PO SCH ×2 (08:27→20:43)
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
[2017-12-31] MEDS: HYDROmorphone 0.5 MG/0.5 ML SYRINGE IVP PRN (19:29)
[2018-01-01] MEDS: HYDROmorphone 1 MG/ML 1 ML SYRINGE IVP PRN ×8 (00:14→18:47)
[2018-01-01] MEDS: SODIUM CHLORIDE 0.9% 1,000 ML IV SCH ×3 (00:19→16:32)
[2018-01-01] MEDS: HYDROcodone/APAP 10-325MG 1 EACH TAB PO PRN ×3 (05:00→17:27)
[2018-01-01] MEDS: GENTAMICIN 360 MG in SODIUM CHLORIDE 0.9% 100 ML IV SCH (05:02)
[2018-01-01] MEDS: LEVOTHYROXINE 25 MCG TAB PO SCH (06:02)
[2018-01-01 06:57] LABS: Basophils % (A) 0 %; Eosinophils % (A) 0 %; HCT 24.3 % (39.0-53.0); Lymphocytes # (A) 1.3 k/uL (1.0-4.8); Lymphocytes % (A) 12 %; MCH 28.1 pg (25.0-35.0); MCHC 31.6 g/dL (31.0-37.0); Mean Platelet Volume 7.8; Monocytes # (A) 0.5 k/uL (0-1.0); Monocytes % (A) 4 %; Neutrophils # (A) 8.8 k/uL (1.3-7.7); Neutrophils % (A) 82 %; Platelet Count 169 k/uL (150-450); RBC 2.74 m/uL (4.30-5.90); RDW 13.2 % (11.5-15.5); WBC 10.8 k/uL (3.8-10.6)
[2018-01-01 07:02] LABS: HGB 7.7 gm/dL (13.0-17.5)
[2018-01-01 07:06] LABS: Anion Gap 6 mmol/L; Blood Urea Nitrogen 6 mg/dL (9-20); Calcium 7.7 mg/dL (8.4-10.2); Carbon Dioxide 25 mmol/L (22-30); Chloride 106 mmol/L (98-107); Glucose 119 mg/dL (74-99); Potassium 3.9 mmol/L (3.5-5.1); Sodium 137 mmol/L (137-145)
[2018-01-01] MEDS: KETOROLAC 30 MG/ML 1 ML VIAL IVP PRN ×2 (08:05→14:34)
[2018-01-01] MEDS: HEPARIN SODIUM,PORCINE 5,000 UNIT/ML 1 ML VIAL SQ SCH ×2 (08:06→16:51)
[2018-01-01] MEDS: ceFAZolin IN SWFI 2 GM/20 ML SYRINGE IVP SCH ×2 (08:06→16:51)
[2018-01-01] MEDS: FAMOTIDINE 20 MG TAB PO SCH (08:07)
[2018-01-01] MEDS: LISINOPRIL 10 MG TAB PO SCH (08:07)
[2018-01-01] MEDS: SYMBICORT 160-4.5 MCG INHALER INHALATION SCH (08:19)
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
[2018-01-01 10:05] VITALS: TEMP 98.7
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
[2018-01-01] MEDS: MULTIVITAMINS, THERA 1 EACH TAB PO SCH (12:29)
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
[2018-01-01 14:43] VITALS: RESP 20
[2018-01-01 16:49] LABS: Basophils % (A) 0 %; Eosinophils # (A) 0.1 k/uL (0-0.7); Eosinophils % (A) 1 %; HGB 7.4 gm/dL (13.0-17.5); Lymphocytes % (A) 23 %; MCH 28.8 pg (25.0-35.0); MCHC 32.4 g/dL (31.0-37.0); MCV 89.1 fL (80.0-100.0); Mean Platelet Volume 8.2; Monocytes # (A) 0.6 k/uL (0-1.0); Monocytes % (A) 7 %; Neutrophils # (A) 5.7 k/uL (1.3-7.7); Neutrophils % (A) 67 %; Platelet Count 183 k/uL (150-450); RBC 2.58 m/uL (4.30-5.90); RDW 13.2 % (11.5-15.5); WBC 8.5 k/uL (3.8-10.6)
[2018-01-01 18:38] VITALS: BP 119/62; PULSE 97
== END 2018-01-01 21:57 | disposition home or self-care (01) | DRG 464 ==
LOC: EC 23:33 → 6SEL 12-30 02:04
PROVIDERS: ADMIT Surgery; ATTEND Surgery
PROC: 0QSK35Z Reposition Left Fibula with External Fixation Device, Percutaneous Approach (ICD-10-PCS; 2017-12-30)
PROC: 0JBR0ZZ Excision of Left Foot Subcutaneous Tissue and Fascia, Open Approach (ICD-10-PCS; principal; 2017-12-30 09:00)
DX: S82.6 Fracture of lateral malleolus (principal); S92.002B Unspecified fracture of left calcaneus, initial encounter for open fracture; S92.212B Displaced fracture of cuboid bone of left foot, initial encounter for open fracture; S92.312B Displaced fracture of first metatarsal bone, left foot, initial encounter for open fracture; S92.252B Displaced fracture of navicular [scaphoid] of left foot, initial encounter for open fracture; Y92.410 Unspecified street and highway as the place of occurrence of the external cause; I10 Essential (primary) hypertension; J45.909 Unspecified asthma, uncomplicated; S00.81XA Abrasion of other part of head, initial encounter; S92.332A Displaced fracture of third metatarsal bone, left foot, initial encounter for closed fracture; S92.341A Displaced fracture of fourth metatarsal bone, right foot, initial encounter for closed fracture; G89.4 Chronic pain syndrome; E03.9 Hypothyroidism, unspecified; Z79.51 Long term (current) use of inhaled steroids; Z87.891 Personal history of nicotine dependence; V29.9XXA Motorcycle rider (driver) (passenger) injured in unspecified traffic accident, initial encounter; Z79.890 Hormone replacement therapy; Z79.899 Other long term (current) drug therapy; S92.401A Displaced unspecified fracture of right great toe, initial encounter for closed fracture; S40.212A Abrasion of left shoulder, initial encounter; M54.9 Dorsalgia, unspecified; M10.9 Gout, unspecified; R42 Dizziness and giddiness; H05.222 Edema of left orbit
CPT/HCPCS: 36415; 70450; 71045; 71260; 72125; 72170; 74177; 80048; 80053; 80306; 80320; 81003; 82150; 82550; 82553; 83605; 83690; 84484; 85025; 85610; 85730; 86850; 86900; 86901; 87040; 93005; 94640

== ENCOUNTER 2020-07-08 21:27 | Emergency (ER) | payer MEDICARE, BC ==
[2020-07-08 21:37] VITALS: BP 157/100; PULSE 98; RESP 18; TEMP 98
--- NOTE | 2020-07-08 21:48 | ED ---
Recheck HPI - General Chief Complaint: Recheck/Abnormal Lab/Rx Stated Complaint: Pain Time Seen by Provider: 07/08/20 21:46 Source: patient Mode of arrival: wheelchair Limitations: no limitations - History of Present Illness Initial Comments: 44-year-old male with history of chronic back and foot painpresents emergency Department with a chief complaint of back and foot pain.patient states here to see the pain management physician and has an appointment tomorrow for medication refill. Patient states she takes oxycodone 30 mg. States he was also given tramadol 8 tablets 3 days ago. Patient states now he is out of medication until tomorrow. States the pain is unbearable. Denies any muscle, suicidal thoughts or ideations. - Related Data Home Medications Medication Instructions Recorded Confirmed Hydrocodone/Acetaminophen [[place] 1 tab PO Q6H PRN 10/29/13 12/30/17 10-325] diazePAM [Valium] 5 mg PO DAILY PRN 10/29/13 12/30/17 Albuterol Inhaler (Mhu) [Ventolin 2 puff INHALATION RT-Q6H PRN 11/15/16 12/30/17 Hfa Inhaler (Mhu)] Ergocalciferol [Vitamin D2 50,000 unit PO FR 11/15/16 12/30/17 (DRISDOL)] Mometasone/Formoterol [Dulera 200 1 puff INHALATION RT-DAILY 11/15/16 12/30/17 Mcg-5 Mcg Inhaler] oxyCODONE-APAP 10-325MG [Percocet 1 tab PO Q8H PRN 11/15/16 12/30/17 10-325 mg] Levothyroxine Sodium [Synthroid] 25 mcg PO DAILY 12/30/17 12/30/17 Multivitamin [Multivitamins Adult 1 tab PO DAILY 12/30/17 12/30/17 Gummies] lisinopriL [Zestril] 10 mg PO DAILY 12/30/17 12/30/17 Allergies Allergy/AdvReac Type Severity Reaction Status Date / Time No Known Allergies Allergy Verified 12/30/17 14:24 Review of Systems ROS Statement: Those systems with pertinent positive or pertinent negative responses have been documented in the HPI. ROS Other: All systems not noted in ROS Statement are negative. Past Medical History Past Medical History: Asthma, Hypertension, Thyroid Disorder Additional Past Medical History / Comment(s): GOUT, vertigo History of Any Multi-Drug Resistant Organisms: None Reported Past Surgical History: Back Surgery, Orthopedic Surgery Additional Past Surgical History / Comment(s): left shoulder spurs Past Anesthesia/Blood Transfusion Reactions: No Reported Reaction Past Psychological History: No Psychological Hx Reported Smoking Status: Never smoker Past Alcohol Use History: Occasional Past Drug Use History: None Reported - Past Family History Father Additional Family Medical History / Comment(s): no history to report Mother Additional Family Medical History / Comment(s): back issues General Exam Limitations: no limitations General appearance: alert, in no apparent distress, obese Head exam: Present: atraumatic, normocephalic, normal inspection Eye exam: Present: normal appearance, PERRL, EOMI Pupils: Present: normal accommodation ENT exam: Present: normal exam, normal oropharynx, mucous membranes moist Neck exam: Present: normal inspection, full ROM. Absent: tenderness Respiratory exam: Present: normal lung sounds bilaterally Cardiovascular Exam: Present: regular rate, normal rhythm, normal heart sounds Extremities exam: Present: normal inspection (scarring noted on the left ankle secondary to multiple surgeries), full ROM, normal capillary refill Back exam: Present: normal inspection, full ROM, tenderness, paraspinal tenderness, vertebral tenderness (lumbosacral tenderness) Neurological exam: Present: alert, oriented X3, normal gait Psychiatric exam: Present: normal affect, normal mood Skin exam: Present: warm, dry, intact, normal color Course Vital Signs 07/08/20 21:35 Temperature 98 F Pulse Rate 98 Respiratory 18 Rate Blood Pressure 157/100 O2 Sat by Pulse 98 Oximetry Medical Decision Making - Medical Decision Making 44-year-old male with history of chronic back and foot pain presents emergency Department with back and foot pain. Physical examination, patient is in distress secondary to the pain. Patient is only requesting symptomatically until he is able to see his ppain management doctor tomorrow. Patient was given oxycodone emergency department. He will be discharged with any medication. Maps obtained. Case discussed with Dr. Elizabeth. Disposition Clinical Impression: Back pain, Foot pain, left Disposition: HOME SELF-CARE Condition: Stable Instructions (If sedation given, give patient instructions): Chronic Back Pain (DC) Additional Instructions: Follow with her pain management physician. Return to emergency department if symptoms worsen. Is patient prescribed a controlled substance at d/c from ED?: No Referrals: July Reyna DO [Primary Care Provider] - 1-2 days Time of Disposition: 22:28
[2020-07-08] MEDS ORDERED: oxyCODONE ER 80 MG TAB.ER.12H PO ONE (23:00)
== END 2020-07-08 22:30 | disposition home or self-care (01) ==
LOC: EC 21:27
DX: M54.9 Dorsalgia, unspecified (principal); M79.672 Pain in left foot; I10 Essential (primary) hypertension; E07.9 Disorder of thyroid, unspecified; Z79.899 Other long term (current) drug therapy
CPT/HCPCS: 99283

== ENCOUNTER → 2024-09-27 | Outpatient (CLI) | payer MEDICARE ==
--- NOTE | 2024-09-27 12:19 | CA ---
Exercise Nuclear Stress Test Report Name: Gibran Zaman Exam Date: 09/27/2024 10:34 Exam Location: [place] Stress Ht (in): 72 Wt (lb): 222 BSA: 2.23 Ordering Phys: Perla Ruiz DO Referring Phys: Jessica Medley [facility] Technologist: fer watson Age: 49 Gender: M : 1975 Procedure CPT: Indications: R07.9 CHEST PAIN, UNSPECIFIED ICD-10 Codes: Patient History: Chest pain, hypertension, palpitations and family history of heart disease. Medications: Meds past 24 hrs: Pretest Chest Pain: STRESS TEST Anoop Protocol Exercise Duration (min:sec): 07:[address] Depressions (mm): Angina Score: Gómez Score: Resting HR (bpm): 57 Peak HR (bpm): 147 Resting BP (mmHg): 126 / 77 Peak BP (mmHg): 174 / 50 MPHR: 171 Target HR: 145 % MPHR: 86 METS: 9.2 Total Dose: Peak Dose: Atropine: Double Product: 41388 BP Response: Stress Termination: TARGET HR REACHED/MAX EXERTION Stress Symptoms: NO SYMPTOMS Stress Summary: The patient's target heart rate was achieved, The hemodynamic response to exercise was normal ECG ANALYSIS Resting ECG: Sinus rhythm. Normal conduction. No arrhythmias. Normal repolarization. Stress ECG: No ECG evidence of ischemia with exercise. CONCLUSIONS 1. Average exercise tolerance with normal electrocardiographic response to exercise 2. Nuclear images will be reported separately Dr. Marilyn Brush MD (Electronically Signed) Final Date: 27 September 2024 12:18
--- NOTE | 2024-09-27 13:53 | NM ---
EXAMINATION TYPE: NM stress cardiolite complete DATE OF EXAM: 09/27/2024 COMPARISON: NONE CLINICAL INDICATION: Male, 49 years old with history of R07.9 CHEST PAIN, UNSPECIFIED, TECHNIQUE: After the intravenous administration of 9.58 mCi Tc 99m Sestamibi - Cardiolite resting SP ECT images acquired 55 minutes post injection. At peak stress 24 mCi Tc 99m Sestamibi - Stress images obtained 20 minutes post injection The patient was stressed with 0.4mg Lexiscan. FINDINGS: No fixed defects are evident. No reversible stress defects on Spect images. Wall motion is normal. Ejection fraction is calculated to be 60 %. IMPRESSION: 1. No stress-induced ischemic changes [facility], Workstation: [facility], 09/27/2024 1:51 PM
== END | disposition home or self-care (01) ==
LOC: RADNMMAIN 08:34
PROVIDERS: ATTEND Family Medicine
DX: R00.2 Palpitations (principal); I10 Essential (primary) hypertension; Z82.49 Family history of ischemic heart disease and other diseases of the circulatory system
CPT/HCPCS: 93017; 78452; A9500